=== PATIENT | male | born 2000 | race Caucasian/White ===

== ENCOUNTER 2018-11-21 21:05 | Emergency (ER) | payer OTHER ==
[~2018-11-21] VITALS: Ht 170.2 cm; Wt 54.4 kg
--- NOTE | 2018-11-21 21:15 | NUR ---
PATIENT ARRIVES TO ROOM WITH OFFICER OBEY, IS HANDCUFFED TO BED AND COOPERATIVE. PATIENT GIVES CONCENT FOR BLOOD DRAW AND STATES HE INGESTED A HALF A GRAM TO 1 GRAM OF METHAMPHETEMINE WHEN HE WAS PULLED OVER BY LAW INFORCEMENT AT 2000.
--- NOTE | 2018-11-21 21:25 | ED General ---
General Stated Complaint: DRUG INJESTION History of Present Illness Date Seen by Provider: Nov 21, 2018 Time Seen by Provider: 21:23 Initial Comments Patient presenting to emergency Department in police custody for evaluation of methamphetamine use. Patient was being pulled over for a routine traffic stop when patient admitted that he had just ingested approximately half a gram to 1 g of methamphetamines. gifts officer told me his traffic stop was at approximately 8 PM says ingestion was around 745 PM. He says that he has a methamphetamine abuse issue and he usually snorts it approximately 1/4 to 1/2 gram daily so this is not particularly a larger amount than usual however he usually does not orally ingest it. He says that physically he feels fine he just feels ashamed of the situation. He denies any confusion and agitation muscle pain vision changes, chest pain nausea vomiting, or headache. He says that he is healthy and takes no other medications on regular basis. He is in no obvious distress with normal vital signs except mild hypertension. Allergies and Home Medications Allergies Coded Allergies: No Known Drug Allergies (Unverified , 11/21/18) Patient Home Medication List Home Medication List Reviewed: Yes Review of Systems Review of Systems Constitutional: No fever EENTM: No blurred vision Respiratory: No short of breath Cardiovascular: No chest pain Gastrointestinal: No nausea, No vomiting Musculoskeletal: No muscle pain Skin: No rash Psychiatric/Neurological: Denies Headache, Denies Numbness, Denies Paresthesia All Other Systems Reviewed Negative Unless Noted: Yes Past Agxocgw-Kfbcur-Bskynn Hx Patient Social History Recent Foreign Travel: No Contact w/Someone Who Travel: No Physical Exam Vital Signs Capillary Refill : Height, Weight, BMI Height: '" Weight: lbs. oz. kg; BMI Method: General Appearance: No Apparent Distress, WD/WN HEENT: PERRL/EOMI Neck: Full Range of Motion Respiratory: Lungs Clear Cardiovascular: Regular Rate, Rhythm, No Edema Gastrointestinal: Non Tender, Soft Extremity: Normal Capillary Refill Neurologic/Psychiatric: Alert, Oriented x3 Skin: Normal Color, Warm/Dry Progress/Results/Core Measures Suspected Sepsis SIRS Temperature: Pulse: Respiratory Rate: Laboratory Tests 11/21/18 21:43: White Blood Count 11.6H Blood Pressure / Mean: Laboratory Tests 11/21/18 21:43: Creatinine 1.01, Platelet Count 224, Total Bilirubin 0.3 Results/Orders Lab Results Laboratory Tests Test 11/21/18 21:43 Range/Units White Blood Count 11.6 H 4.3-11.0 10^3/uL Red Blood Count 5.62 4.35-5.85 10^6/uL Hemoglobin 14.9 13.3-17.7 G/DL Hematocrit 46 40-54 % Mean Corpuscular Volume 82 80-99 FL Mean Corpuscular Hemoglobin 27 25-34 PG Mean Corpuscular Hemoglobin Concent 33 32-36 G/DL Red Cell Distribution Width 14.3 10.0-14.5 % Platelet Count 224 130-400 10^3/uL Mean Platelet Volume 9.7 7.4-10.4 FL Neutrophils (%) (Auto) 73 42-75 % Lymphocytes (%) (Auto) 19 12-44 % Monocytes (%) (Auto) 7 0-12 % Eosinophils (%) (Auto) 0 0-10 % Basophils (%) (Auto) 1 0-10 % Neutrophils # (Auto) 8.5 H 1.8-7.8 X 10^3 Lymphocytes # (Auto) 2.2 1.0-4.0 X 10^3 Monocytes # (Auto) 0.8 0.0-1.0 X 10^3 Eosinophils # (Auto) 0.1 0.0-0.3 10^3/uL Basophils # (Auto) 0.1 0.0-0.1 10^3/uL Sodium Level 142 135-145 MMOL/L Potassium Level 4.1 3.6-5.0 MMOL/L Chloride Level 107 98-107 MMOL/L Carbon Dioxide Level 21 21-32 MMOL/L Anion Gap 14 5-14 MMOL/L Blood Urea Nitrogen 16 7-18 MG/DL Creatinine 1.01 0.60-1.30 MG/DL Estimat Glomerular Filtration Rate > 60 BUN/Creatinine Ratio 16 Glucose Level 111 H 70-105 MG/DL Calcium Level 9.3 8.5-10.1 MG/DL Corrected Calcium 8.5-10.1 MG/DL Total Bilirubin 0.3 0.1-1.0 MG/DL Aspartate Amino Transf (AST/SGOT) 21 5-34 U/L Alanine Aminotransferase (ALT/SGPT) 16 0-55 U/L Alkaline Phosphatase 67 40-136 U/L Total Protein 7.0 6.4-8.2 GM/DL Albumin 4.6 H 3.2-4.5 GM/DL Salicylates Level < 0.3 L 5.0-20.0 MG/DL Acetaminophen Level < 10 L 10-30 UG/ML Serum Alcohol < 10 <10 MG/DL My Orders Orders - MELINDA LAZARO DO Cbc With Automated Diff (11/21/18 21:34) Comprehensive Metabolic Panel (11/21/18 21:34) Acetaminophen (11/21/18 21:34) Alcohol (11/21/18 21:34) Salicylate (11/21/18 21:34) Ns Iv 1000 Ml (Sodium Chloride 0.9%) (11/21/18 21:45) Lorazepam Injection (Ativan Injection) (11/21/18 22:30) Ekg Tracing (11/21/18 22:25) Drug Screen Stat (Urine) (11/21/18 22:27) Ns Iv 1000 Ml (Sodium Chloride 0.9%) (11/21/18 22:45) Lorazepam Injection (Ativan Injection) (11/21/18 22:45) Medications Given in ED Current Medications Medications Dose Ordered Sig/Lula Route Start Time Stop Time Status Last Admin Dose Admin Lorazepam 1 mg ONCE ONCE IVP 11/21/18 22:30 11/21/18 22:31 DC 11/21/18 22:32 1 MG Sodium Chloride 1,000 ml ONCE ONCE IV 11/21/18 21:45 11/21/18 21:46 DC 11/21/18 21:55 1,000 ML Vital Signs/I&O Capillary Refill : Progress Note : Time: 21:43 Progress Note No signs or symptoms of sympathomimetic toxicity. He is not tachycardic delirious or have any signs of concerning toxidrome. Review of literature shows that oral methamphetamines usually in the system by 20-30 minutes but the effects can last longer up to 6-12 hours. There was a case study of a fatality of orally ingested methamphetamines but was at a high dose of 3 g. Patient was questioned and he told me the max dose he could have taken was 1g. 22:15: Patient started getting agitated and delirious, seeing things in the curtain in the room. His HR increased to 110 to 120. I spoke to poison center and they said that he would need to be admitted and will likely be symptomatic for at least 12 hours. The recommended aggressive benzos and precedex can be used in severe agitation. Benzos helped here to control agitation. [facility] was full. Officer who has patient under custody is requesting to go to if possible. I spoke to Ela Butts, ISIDRA at [facility] and she accepted patient there. Attending provider is Dr. Santiago. Patient transferred in guarded condition CC time of 44 mins. Departure Impression Primary Impression: Drug abuse Additional Impressions: Acute encephalopathy Leukocytosis Tachycardia with heart rate 100-120 beats per minute Agitation Disposition: XF SHT-TRM HOSP Condition: Critical Transfer Time Spoke to Accepting Phy: 23:00 Departure-Patient Inst. Referrals: NO,LOCAL PHYSICIAN (PCP/Family) Primary Care Physician MELINDA LAZARO DO Nov 21, 2018 21:25
[2018-11-21] MEDS ORDERED: NS 1000 ML IV BAG IV ONE ×2 (21:45→22:45)
[2018-11-21 21:53] LABS: EOSINOPHILS % (AUTO) 0 % (0-10); HEMATOCRIT 46 % (40-54); HEMOGLOBIN 14.9 G/DL (13.3-17.7); LYMPHOCYTES % (AUTO) 19 % (12-44); MEAN CORPUSCULAR HEMOGLOBIN 27 PG (25-34); MEAN CORPUSCULAR HGB CONC 33 G/DL (32-36); MEAN CORPUSCULAR VOLUME 82 FL (80-99); MEAN PLATELET VOLUME 9.7 FL (7.4-10.4); MONOCYTES % (AUTO) 7 % (0-12); NEUTROPHILS % (AUTO) 73 % (42-75); PLATELET COUNT 224 10^3/uL (130-400); RED CELL DISTRIBUTION WIDTH 14.3 % (10.0-14.5); WHITE BLOOD COUNT 11.6 10^3/uL (4.3-11.0)
[2018-11-21 21:54] LABS: BASOPHILS # (AUTO) 0.1 10^3/uL (0.0-0.1); BASOPHILS % (AUTO) 1 % (0-10); EOSINOPHILS # (AUTO) 0.1 10^3/uL (0.0-0.3); LYMPHOCYTES # (AUTO) 2.2 X 10^3 (1.0-4.0); MONOCYTES # (AUTO) 0.8 X 10^3 (0.0-1.0); NEUTROPHILS # (AUTO) 8.5 X 10^3 (1.8-7.8)
[2018-11-21 22:20] LABS: POTASSIUM 4.1 MMOL/L (3.6-5.0); SODIUM 142 MMOL/L (135-145)
[2018-11-21 22:21] LABS: ALANINE AMINOTRANSFERASE 16 U/L (0-55); ALKALINE PHOSPHATASE 67 U/L (40-136); BILIRUBIN,TOTAL 0.3 MG/DL (0.1-1.0); BUN/CREATININE RATIO 16; CALCIUM 9.3 MG/DL (8.5-10.1); CARBON DIOXIDE 21 MMOL/L (21-32); CHLORIDE 107 MMOL/L (98-107); CREATININE SERUM 1.01 MG/DL (0.60-1.30); GFR ESTIMATED > 60; GLUCOSE 111 MG/DL (70-105)
[2018-11-21 22:22] LABS: ACETAMINOPHEN < 10 UG/ML (10-30); ALBUMIN 4.6 GM/DL (3.2-4.5); SALICYLATE < 0.3 MG/DL (5.0-20.0)
[2018-11-21] MEDS ORDERED: LORazepam INJ 2 MG/ML (ATIVAN) VIAL IVP ONE ×6 (22:30→23:45)
[2018-11-21 23:28] LABS: AMPHETAMINE SCREEN, URINE POSITIVE (NEGATIVE); CANNABINOID SCREEN, URINE POSITIVE (NEGATIVE)
[2018-11-21 23:29] LABS: BARBITURATE SCREEN URINE NEGATIVE (NEGATIVE); BENZODIAZEPINES SCREEN URINE NEGATIVE (NEGATIVE); COCAINE SCREEN URINE NEGATIVE (NEGATIVE); METHADONE STAT NEGATIVE (NEGATIVE); METHAMPHETAMINE SCREEN URINE S NEGATIVE (NEGATIVE); OPIATE SCREEN URINE NEGATIVE (NEGATIVE); OXYCODONE STAT NEGATIVE (NEGATIVE); PROPOXYPHENE STAT NEGATIVE (NEGATIVE); TRICYCLIC ANTIDEPRESSANTS SCRE NEGATIVE (NEGATIVE)
[2018-11-22] MEDS ORDERED: NS 1000 ML IV BAG IV ONE (00:15)
[2018-11-22 00:43] VITALS: BP 148/104
== END 2018-11-22 00:43 | disposition short-term general hospital (02) ==
LOC: ER FS 21:12
DX: F15.10 Other stimulant abuse, uncomplicated (principal); D72.829 Elevated white blood cell count, unspecified; R00.0 Tachycardia, unspecified; R45.1 Restlessness and agitation; G93.40 Encephalopathy, unspecified
CPT/HCPCS: 36415; 80053; 80306; 80320; 80329; 85025; 93005; 96361; 96374; 96376

== ENCOUNTER 2018-11-28 18:02 | Emergency (ER) | payer OTHER ==
[~2018-11-28] VITALS: Ht 170.2 cm; Wt 54.4 kg
--- NOTE | 2018-11-28 18:29 | ED GU-Male ---
General Chief Complaint: Abdominal/GI Problems Stated Complaint: ABD PAIN Nursing Triage Note: PT PRESENTS FROM [facility] FOR LOWER PELVIC PAIN THAT RADIATES TO HIS SCROTUM. Source: patient, police (staff from [facility]) History of Present Illness Date Seen by Provider: Nov 28, 2018 Time Seen by Provider: 18:05 Initial Comments Patient is a 18-year-old male presenting with complaints of right flank pain that radiates down into his right testicle. He states that this pain came on suddenly approximately an hour prior to arrival. This did think it around 4:30 PM. He states that the pain is severe and has been making him feel like he might throw up. It is radiating into his back as well. He is currently in alf for methamphetamine abuse and possession of drugs. He is very agitated and constantly trying out for pain medicine and drugs. He states that he has not had pain like this before but then he immediately says that he's had pain like this because he had a recurring problem with blood flow to his testicle when he was in high school. He has no fever or chills. He has no redness or swelling to his scrotum or testicles. He does describe burning and pain with urination. Allergies and Home Medications Allergies Coded Allergies: No Known Drug Allergies (Unverified , 11/21/18) Home Medications Ibuprofen 800 Mg Tablet, 600 MG PO Q6H Prescribed by: PIOTR MICHAEL on 11/28/181917 Tamsulosin HCl 0.4 Mg Cap, 0.4 MG PO DAILY Prescribed by: PIOTR MICHAEL on 11/28/181917 Patient Home Medication List Home Medication List Reviewed: Yes Review of Systems Review of Systems Constitutional: see HPI; No chills, No fever EENTM: no symptoms reported Respiratory: no symptoms reported Cardiovascular: no symptoms reported Gastrointestinal: see HPI, abdominal pain (right flank pain going into his testicle), nausea; No vomiting Genitourinary: burning, dysuria, flank pain (right-sided radiating into his testicle), pain Musculoskeletal: no symptoms reported Skin: no symptoms reported Psychiatric/Neurological: Anxiety Past Wkibyyq-Gykias-Nnxlvo Hx Past Med/Social Hx: Reviewed Nursing Past Med/Soc Hx Patient Social History Alcohol Use: Rarely Uses Recreational Drug Use: Yes Drug of Choice: METH, MARIJUANA, AND COCAINE Smoking Status: Current Everyday Smoker Type Used: Cigarettes 2nd Hand Smoke Exposure: Yes Recent Foreign Travel: No Contact w/Someone Who Travel: No Recent Infectious Disease Expo: No Recent Hopitalizations: No Physical Abuse: No Sexual Abuse: No Mistreated: No Fear: No Seasonal Allergies Seasonal Allergies: No Past Medical History Surgeries: No Respiratory: No Cardiac: No Neurological: No Genitourinary: No Gastrointestinal: No Musculoskeletal: No Endocrine: No HEENT: No Cancer: No Psychosocial: No Integumentary: No Blood Disorders: No Adverse Reaction/Blood Tranf: No Physical Exam Vital Signs Vital Signs - First Documented 11/28/18 11/28/18 18:07 19:38 Temp 97.4 Pulse 70 Resp 18 B/P (MAP) 159/99 (119) Pulse Ox 100 O2 Delivery Room Air Capillary Refill : Less Than 3 Seconds Height, Weight, BMI Height: 5'7.00" Weight: 120lbs. oz. 54.066349gn; BMI Method:Stated General Appearance: WD/WN, moderate distress (patient is constantly grabbing his right testicle and crying out in pain demanding pain medicine), thin HEENT: PERRL/EOMI, pharynx normal Neck: non-tender, supple Cardiovascular: normal peripheral pulses, regular rate, rhythm Respiratory: chest non-tender, lungs clear, normal breath sounds, no respiratory distress, no accessory muscle use Gastrointestinal: normal bowel sounds, soft, no pulsatile mass; No distended, No guarding, No rebound; tenderness (suprapubic and right lower quadrant) Rectal: deferred Male: normal genitalia, no hernia, testicular tenderness (no swelling or erythema to either testicle or scrotum but complains of pain with palpation of the right testicle) Back: normal inspection, no CVA tenderness, no vertebral tenderness Extremities: normal range of motion, non-tender, normal inspection Neurologic/Psychiatric: alert, oriented x 3 Skin: normal color, warm/dry Progress/Results/Core Measures Suspected Sepsis Recent Fever Within 48 Hours: No Infection Criteria Present: None New/Unexplained Altered Menta: No Sepsis Screen: No Definite Risk SIRS Temperature:97.4 Pulse: 70 Respiratory Rate: 18 Blood Pressure 159 /99 Mean: 119 Results/Orders Lab Results Laboratory Tests Test 11/28/18 18:33 Range/Units Urine Color YELLOW Urine Clarity TURBID Urine pH 7.5 5-9 Urine Specific [place] 1.015 L 1.016-1.022 Urine Protein NEGATIVE NEGATIVE Urine Glucose (UA) NEGATIVE NEGATIVE Urine Ketones NEGATIVE NEGATIVE Urine Nitrite NEGATIVE NEGATIVE Urine Bilirubin NEGATIVE NEGATIVE Urine Urobilinogen 0.2 NORMAL MG/DL Urine Leukocyte Esterase NEGATIVE NEGATIVE Urine RBC (Auto) 2+ H NEGATIVE Urine RBC 10-25 H /HPF Urine WBC NONE /HPF Urine Squamous Epithelial Cells NONE /HPF Urine Crystals NONE /LPF Urine Amorphous Sediment LARGE SYLWIA PHOSPHATE H /LPF Urine Bacteria NEGATIVE /HPF Urine Casts NONE /LPF Urine Mucus NEGATIVE /LPF Urine Culture Indicated NO My Orders Orders - PIOTR MICHAEL MD Ketorolac Injection (Toradol Injection) (11/28/18 18:30) Promethazine Injection (Phenergan Injec (11/28/18 18:30) Ua Culture If Indicated (11/28/18 18:17) Ct Abd/Pelvis Wo(Kidney Stone) (11/28/18 18:17) Lorazepam Injection (Ativan Injection) (11/28/18 18:30) Hyoscyamine Sl Tablet (Levsin Sl Tablet) (11/28/18 19:45) Hyoscyamine Sl Tablet (Levsin Sl Tablet) (11/28/18 19:33) Medications Given in ED Current Medications Medications Dose Ordered Sig/Lula Route Start Time Stop Time Status Last Admin Dose Admin Hyoscyamine Sulfate 0.125 mg ONCE ONCE PO 11/28/18 19:45 11/28/18 19:45 DC 11/28/18 19:37 0.125 MG Ketorolac Tromethamine 60 mg ONCE ONCE IM 11/28/18 18:30 11/28/18 18:31 DC 11/28/18 18:32 60 MG Lorazepam 2 mg ONCE ONCE IM 11/28/18 18:30 11/28/18 18:31 DC 11/28/18 18:37 2 MG Promethazine HCl 25 mg ONCE ONCE IM 11/28/18 18:30 11/28/18 18:31 DC 11/28/18 18:37 25 MG Vital Signs/I&O 11/28/18 11/28/18 18:07 19:38 Temp 97.4 98.3 Pulse 70 56 Resp 18 18 B/P (MAP) 159/99 (119) 125/97 (106) Pulse Ox 100 O2 Delivery Room Air Room Air Capillary Refill : Less Than 3 Seconds Blood Pressure Mean: 119 Progress Note #1: Time: 18:20 Progress Note Will order Toradol for potential kidney stone pain, Ativan for his anxiety and to try and help him remain still for his CT scan, Phenergan for nausea. Will try and check a urine and if he will give us a urine specimen. Based on the sudden and severe itchiness of his symptoms is certainly seems to fit with a kidney stone which would be more possible with his methamphetamine abuse since that does tend to lead to dehydration. Based on review of his past medical records from the [facility] EMR he has no history of testicular torsion as he was trying to describe that he did have a hydrocele on the left testicle in the past. Progress Note #2: Time: 19:05 Progress Note UA shows blood present but no evidence of bacteria, LE or Nitrites to indicate infection. He also has amorphous phosphate crystals in his urine to go with it being alkaline, consistent with his recent ingestion of Methamphetamines. CT scan shows a small 3 mm stone in distal right ureter near the UVJ with mild hydroureter. Will add on Flomax to the patient's regimen, encourage him to drink more water and stay better hydrated. Continue with NSAIDS and follow up with Urology for continued problems. Diagnostic Imaging Diagonstic Imaging: CT Plain Films/CT/US/NM/MRI: abdomen, pelvis Comments NAME: RAAD ESCOBEDO V [facility] REC#: [id number] PT STATUS: REG ER : 2000 PHYSICIAN: PIOTR MICHAEL MD ADMIT DATE: 11/28/18/ER FS Draft Date of Exam:11/28/18 CT ABD/PELVIS WO(KIDNEY STONE) PROCEDURE: CT urinary tract, rule out kidney stone. TECHNIQUE: Multiple contiguous axial images were obtained through the abdomen and pelvis without the use of intravenous contrast. Auto Exposure Controls were utilized during the CT exam to meet ALARA standards for radiation dose reduction. INDICATION: Right flank pain radiating to the testicle. No prior studies are available for comparison. The lung bases are clear. Liver and gallbladder are unremarkable. No biliary ductal dilatation seen. Pancreas and spleen are unremarkable. No adrenal mass is identified. No renal calculi are seen. The right ureter is somewhat prominent. There is a 3 mm calcific density in the right pelvis near the UVJ suggestive of distal ureteral calculus. This does produce mild hydroureteronephrosis. The left ureter is unremarkable. Bladder is unremarkable. Aorta is non-aneurysmal. Small and large bowel loops are normal in caliber. Appendix is unremarkable. There is no ascites. IMPRESSION: A 3 mm distal right ureteric calculus producing moderate hydroureteronephrosis. Dictated on workstation # [id number] Dict: 11/28/18 1857 Trans: 11/28/18 1904 [facility] [id number] Interpreted by: LUCIE ESCOBEDO MD Electronically signed by: Reviewed: Reviewed by Me (and reviewed radiologist report) Departure Impression Primary Impression: Renal colic on right side Additional Impressions: Kidney stone on right side Right distal ureteral calculus Disposition: HOME, SELF-CARE Condition: Stable Departure-Patient Inst. Decision time for Depature: 19:14 Referrals: NO,LOCAL PHYSICIAN (PCP/Family) Primary Care Physician Patient Instructions: Kidney Stone Diet, Kidney Stones (DC), Renal Colic (DC) Add. Discharge Instructions: Drink more water and stay well hydrated to help pass your kidney stone. Take the Flomax daily to help pass the kidney stone. Use Ibuprofen 600 mg every 6 hours to help with pain from the kidney stone. You have a small 3 mm Kidney stone that is about to pass into your bladder. This is the source of your pain on the right side. All discharge instructions reviewed with patient and/or family. Voiced understanding. Scripts Ibuprofen (Ibuprofen) 800 Mg Tablet 600 MG PO Q6H for Pain for 7 Days, #30 TAB 0 Refills Prov: PIOTR MICHAEL MD 11/28/18 Tamsulosin HCl (Flomax) 0.4 Mg Cap 0.4 MG PO DAILY for kidney stone for 7 Days, #7 CAP 0 Refills Prov: PIOTR MICHAEL MD 11/28/18 PIOTR MICHAEL MD Nov 28, 2018 18:28
[2018-11-28] MEDS ORDERED: LORazepam INJ 2 MG/ML (ATIVAN) VIAL IM ONE (18:30)
[2018-11-28] MEDS ORDERED: KETOROLAC 60 MG/2 ML VIAL IM ONE (18:30)
[2018-11-28] MEDS ORDERED: PROMETHAZINE INJ 25 MG/ML (PHENERGAN) AMP IM ONE (18:30)
[2018-11-28 18:46] LABS: CLARITY,URINE TURBID; COLOR,URINE YELLOW
[2018-11-28 18:47] LABS: PH,URINE 7.5 (5-9)
[2018-11-28 18:51] LABS: GLUCOSE, URINE (UA) NEGATIVE (NEGATIVE); KETONES,URINE NEGATIVE (NEGATIVE); PROTEIN,URINE NEGATIVE (NEGATIVE)
[2018-11-28 18:52] LABS: BACTERIA,URINE NEGATIVE /HPF; BILIRUBIN,URINE NEGATIVE (NEGATIVE); LEUKOCYTE ESTERASE ,URINE NEGATIVE (NEGATIVE); NITRITE,URINE NEGATIVE (NEGATIVE); UROBILINOGEN,URINE 0.2 MG/DL (NORMAL)
[2018-11-28 18:53] LABS: AMORPHOUS SEDIMENT,UR LARGE AMOR PHOSPHATE /LPF
--- NOTE | 2018-11-28 19:05 | Diagnostic Imaging Report ---
PROCEDURE: CT urinary tract, rule out kidney stone. TECHNIQUE: Multiple contiguous axial images were obtained through the abdomen and pelvis without the use of intravenous contrast. Auto Exposure Controls were utilized during the CT exam to meet ALARA standards for radiation dose reduction. INDICATION: Right flank pain radiating to the testicle. No prior studies are available for comparison. The lung bases are clear. Liver and gallbladder are unremarkable. No biliary ductal dilatation seen. Pancreas and spleen are unremarkable. No adrenal mass is identified. No renal calculi are seen. The right ureter is somewhat prominent. There is a 3 mm calcific density in the right pelvis near the UVJ suggestive of distal ureteral calculus. This does produce mild hydroureteronephrosis. The left ureter is unremarkable. Bladder is unremarkable. Aorta is non-aneurysmal. Small and large bowel loops are normal in caliber. Appendix is unremarkable. There is no ascites. IMPRESSION: A 3 mm distal right ureteric calculus producing moderate hydroureteronephrosis. Dictated by: Dictated on workstation # [id number]
[2018-11-28] MEDS ORDERED: TAMS0.4C98 PO (19:18)
[2018-11-28] MEDS ORDERED: IBUP-1780 PO (19:18)
[2018-11-28] MEDS ORDERED: TAMSULOSIN 0.4 MG (FLOMAX) CAP PO STA (19:18)
[2018-11-28] MEDS ORDERED: HYOSCYAMINE 0.125 MG (LEVSIN) TAB ONE (19:33)
[2018-11-28 19:38] VITALS: BP 125/97
[2018-11-28] MEDS ORDERED: HYOSCYAMINE 0.125 MG (LEVSIN) TAB PO ONE (19:45)
== END 2018-11-28 19:38 | disposition home or self-care (01) ==
LOC: EDUNIT# 18:02 → ER FS 18:04
DX: N13.2 Hydronephrosis with renal and ureteral calculous obstruction (principal); N23 Unspecified renal colic; F12.10 Cannabis abuse, uncomplicated; F15.10 Other stimulant abuse, uncomplicated; F17.210 Nicotine dependence, cigarettes, uncomplicated; F14.10 Cocaine abuse, uncomplicated
CPT/HCPCS: 74176; 81000

== ENCOUNTER 2023-01-08 22:42 | Emergency (ER) | payer SELFPAY ==
[~2023-01-08] VITALS: Ht 61.2 cm; Wt 61.2 kg
[~2023-01-08 22:42] MED LIST: IBUP-1780 PO; TMSL.4C PO
[2023-01-08 22:47] VITALS: BP 123/93
[2023-01-08] MEDS ORDERED: AUGMENTIN 875 MG TAB (AMOXICILLIN/CLAVULANATE) PO STA (22:53)
[2023-01-08] MEDS ORDERED: IBUP-1773 PO (23:00)
[2023-01-08] MEDS ORDERED: PENI500T PO (23:00)
[2023-01-08] MEDS ORDERED: IBUPROFEN 600 MG (MOTRIN) TAB PO ONE (23:00)
[2023-01-08] MEDS ORDERED: ACETAMINOPHEN 500 MG TAB (TYLENOL) PO ONE (23:00)
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
== END 2023-01-08 23:10 | disposition home or self-care (01) ==
LOC: EDUNIT# 22:42 → ER FS 22:47
DX: K02.9 Dental caries, unspecified (principal); Z28.310 Unvaccinated for COVID-19
CPT/HCPCS: 99283